=== PATIENT | male | born 1955 | race Caucasian/White ===

== ENCOUNTER → 2022-05-15 | Outpatient (CLI) | payer MEDICARE | LOC: MRI 08:50 | PROVIDERS: ATTEND Specialist | DX: M67.352 Transient synovitis, left hip (principal) ==

== ENCOUNTER 2022-05-26 15:52 | Outpatient (RCR) | payer MEDICARE | END 2022-06-12 | LOC: PT 15:52 | PROVIDERS: ATTEND Specialist | DX: M16.12 Unilateral primary osteoarthritis, left hip (principal) ==